=== PATIENT | male | born 1975 | race African-American/Black ===

== ENCOUNTER 2019-02-09 23:25 | Emergency (ER) | payer SELFPAY ==
[~2019-02-09] VITALS: Ht 172.7 cm; Wt 81.6 kg
[2019-02-09] MEDS ORDERED: KEPPRA500 M4 ORAL (23:27)
--- NOTE | 2019-02-09 23:30 | NUR ---
ED Nurse Note: pt ander ra 34 for C/O CP 02/16. pt verbalizes that the pain is a sharp pain. it started about hours ago. pt stated he had a cup of wine prior to th pain. bp 143/55 hr 108. pt is ambulatory. alert x3, appears to be lethargic.
[2019-02-09 23:31] VITALS: BP 140/82
--- NOTE | 2019-02-09 23:31 | NUR ---
ED Nurse Note: per renewable energy engineer, ASA 325mg and 3 spray of nitro was given. not effective.
--- NOTE | 2019-02-10 00:01 | NUR ---
ED Nurse Note: blood draws sent to lab
[2019-02-10 00:15] LABS: BASOPHILS % (AUTO) 0.8 % (0.0-2.0); EOSINOPHILS % (AUTO) 1.3 % (0.0-3.0); HEMATOCRIT 38.9 % (42.0-52.0); HEMOGLOBIN 13.1 G/DL (14.2-18.0); LYMPHOCYTES % (AUTO) 12.6 % (20.0-45.0); MEAN CORPUSCULAR VOLUME 97 FL (80-99); MONOCYTES % (AUTO) 4.6 % (1.0-10.0); NEUTROPHILS % (AUTO) 80.7 % (45.0-75.0); PLATELET COUNT 372 K/UL (150-450); RED BLOOD COUNT 3.99 M/UL (4.70-6.10); RED CELL DISTRIBUTION WIDTH 12.8 % (11.6-14.8); WHITE BLOOD COUNT 11.8 K/UL (4.8-10.8)
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
[2019-02-10 00:24] LABS: ANION GAP 14 mmol/L (5-15); BLOOD UREA NITROGEN 9 mg/dL (7-18); CALCIUM 8.9 MG/DL (8.5-10.1); CARBON DIOXIDE 24 MMOL/L (21-32); CHLORIDE 104 MMOL/L (98-107); POTASSIUM 3.4 MMOL/L (3.5-5.1); SODIUM 142 MMOL/L (136-145)
[2019-02-10 00:29] LABS: ALANINE AMINOTRANSFERASE 28 U/L (12-78); ALBUMIN 3.2 G/DL (3.4-5.0); ALBUMIN/GLOBULIN RATIO 0.8 (1.0-2.7); ALKALINE PHOSPHATASE 109 U/L (46-116); ASPARTATE AMINO TRANSFERASE 34 U/L (15-37); BILIRUBIN,TOTAL 0.4 MG/DL (0.2-1.0)
[2019-02-10 00:51] VITALS: BP 125/84
--- NOTE | 2019-02-10 00:51 | NUR ---
ER DISCHARGE NOTE: Patient is cleared to be discharged per ERMD, pt is aox4, on room air, with stable vital signs. pt was given dc instructions, pt was able to verbalize understanding, pt id band and iv site removed without complications. pt is able to ambulate with steady gait. pt took all belongings.
--- NOTE | 2019-02-11 15:12 | Cardiology Report ---
APPROVED REPORT EKG Measurement Heart [id number] Normal sinus rhythm Normal ECG
== END 2019-02-10 00:51 | disposition home or self-care (01) ==
LOC: EDBD 23:25 → EMR 23:35
DX: R07.9 Chest pain, unspecified (principal); I10 Essential (primary) hypertension; E11.9 Type 2 diabetes mellitus without complications; F19.10 Other psychoactive substance abuse, uncomplicated
CPT/HCPCS: 36415; 80053; 84484; 85025; 93005; 99283; G0480; 80329

== ENCOUNTER → 2019-04-07 | Emergency (ER) | payer MEDICAID ==
[~2019-04-07] VITALS: Ht 180.3 cm; Wt 90.7 kg
[~2019-04-07] MED LIST: Acetaminophen 500mg (ES) tab ORAL ONE; KEPPRA500 M4 ORAL; Ketorolac 30mg Inj IV ONE; NAPROXEN250 MG ORAL
[2019-04-07 22:48] VITALS: BP 138/78
--- NOTE | 2019-04-07 23:24 | Emergency Room Report ---
History of Present Illness General Chief Complaint: Chest Pain Source: Patient Present Illness HPI 43-year-old male history of psychiatric disorder presents with chest pain that is worsened when you push on his chest, and the middle, sharp in nature alleviated by not pushing on his chest severity is been mild, intermittent, no nausea no vomiting no diaphoresis no dyspnea on exertion no shortness of breath , patient presents for evaluation via EMS, he received no aspirin or nitro. Allergies: Coded Allergies: No Known Allergies (Unverified , 02/09/19) Patient History Past Medical History: see triage record Reviewed Nursing Documentation: PMH: Agreed; PSxH: Agreed Nursing Documentation-PM Past Medical History: No History, Except For Hx Diabetes: Yes Hx Seizures: Yes Review of Systems All Other Systems: negative except mentioned in HPI Physical Exam Vital Signs Date Time Temp Pulse Resp B/P (MAP) Pulse Ox O2 Delivery O2 Flow Rate FiO2 04/07/19 22:48 98.2 95 16 138/78 (98) 97 Room Air Sp02 EP Interpretation: reviewed, normal General Appearance: well appearing, no apparent distress, alert Head: normocephalic, atraumatic Eyes: bilateral eye PERRL, bilateral eye EOMI ENT: uvula midline, moist mucus membranes Neck: supple, thyroid normal, supple/symm/no masses Respiratory: lungs clear, no respiratory distress, no retraction, no accessory muscle use Cardiovascular #1: normal peripheral pulses, regular rate, rhythm, no edema, no gallop, no murmur, other - Tenderness to palpation mid chest Gastrointestinal: non tender, soft, no guarding, no rebound Musculoskeletal: normal inspection Neurologic: alert, oriented x3 Psychiatric: mood/affect normal Skin: no rash, warm/dry Medical Decision Making Diagnostic Impression: Primary Impression: Chest pain Qualified Codes: R07.89 - Other chest pain ER Course 43-year-old male presents with atypical chest pain, reproducible with palpation , patient was seen multiple times sleeping very comfortably. differential diagnosis includes ACS, drug abuse, costochondritis. EKG no acute abnormalities, chest x-ray no acute abnormalities Patient improved with Toradol administration Disposition home with return precautions EKG Diagnostic Results EKG Time: 22:51 EP Interpretation: NSR, rate 96, QTc 44, no acute ST elevations, normal axis Chest X-Ray Diagnostic Results Chest X-Ray Diagnostic Results : Chest X-Ray Ordered: Yes # of Views/Limited/Complete: 1 View Indication: Chest Pain EP Interpretation: Yes Interpretation: no consolidation, no effusion, no pneumothorax, no acute cardiopulmonary disease Impression: No acute disease Electronically Signed by: Phillip Sabillon MD Last Vital Signs Date Time Temp Pulse Resp B/P (MAP) Pulse Ox O2 Delivery O2 Flow Rate FiO2 04/07/19 22:48 98.2 95 16 138/78 97 Room Air Disposition: HOME, SELF-CARE Condition: Stable Scripts Naproxen* (NAPROSYN*) 250 Mg Tablet 250 MG ORAL BID PRN for For Pain, #20 TAB 0 Refills Prov: Phillip Sabillon MD 04/07/19 Referrals: [facility] Jacky Hoffman [facility] Patient Instructions: Nonspecific Chest Pain Additional Instructions: The patient was provided with discharge instructions, notified to follow-up with a primary care doctor and or specialist in the next 24-48 hours, and to return to the ED if they have worsening of their symptoms. Please note that this report is being documented using [employer] technology. This can lead to erroneous entry secondary to incorrect interpretation by the dictating instrument. Phillip Sabillon MD Apr 07, 2019 23:24
--- NOTE | 2019-04-08 11:16 | Diagnostic Imaging Report ---
Indication: Chest pain Comparison: None A single view chest radiograph was obtained. Findings: Cardiomediastinal appearance is within normal limits for age. The lungs are clear. Pulmonary vascularity is appropriate. The diaphragmatic contour is smooth and costophrenic angles are sharp. No pleural effusions are identified. The bones are unremarkable. Impression: No acute findings
--- NOTE | 2019-04-09 15:20 | Cardiology Report ---
APPROVED REPORT EKG Measurement Heart [id number] Normal sinus rhythm Normal ECG
== END | disposition home or self-care (01) ==
LOC: EDBD 22:44 → EDUNIT# 22:44 → EMR 22:57
DX: R07.89 Other chest pain (principal); E11.9 Type 2 diabetes mellitus without complications
CPT/HCPCS: 71045; 93005; J1885; Z7502; 99283

== ENCOUNTER 2019-05-25 03:16 | Emergency (ER) | payer SELFPAY ==
[~2019-05-25] VITALS: Ht 185.4 cm; Wt 86.2 kg
[~2019-05-25 03:16] MED LIST changes: -Acetaminophen 500mg (ES) tab ORAL ONE; -Ketorolac 30mg Inj IV ONE
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
[2019-05-25 04:00] VITALS: BP 144/81
[2019-05-25 04:45] VITALS: BP 144/81
== END 2019-05-25 04:45 | disposition home or self-care (01) ==
LOC: EDBD 03:16 → EMR 03:51
DX: R07.9 Chest pain, unspecified (principal); Z59.0 Homelessness; E11.9 Type 2 diabetes mellitus without complications; G40.909 Epilepsy, unspecified, not intractable, without status epilepticus
CPT/HCPCS: 84484; 93005; 99283

== ENCOUNTER 2019-09-10 04:26 | Emergency (ER) | payer SELFPAY ==
[~2019-09-10] VITALS: Ht 188 cm; Wt 108.9 kg
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
[2019-09-10 04:38] VITALS: BP 134/72
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
[2019-09-10 05:20] VITALS: BP 134/72
--- NOTE | 2019-09-10 05:20 | NUR ---
ER DISCHARGE NOTE: Patient is cleared to be discharged per ERMD, pt is aox4, on room air, with stable vital signs. pt was given dc and prescription instructions, pt was able to verbalize understanding, pt id band removed. pt is able to ambulate with steady gait. pt took all belongings.
== END 2019-09-10 05:20 | disposition home or self-care (01) ==
LOC: EDUNIT# 04:26 → EDBD 04:26 → EMR 04:39
DX: R07.9 Chest pain, unspecified (principal); Z59.0 Homelessness; E11.9 Type 2 diabetes mellitus without complications; G40.909 Epilepsy, unspecified, not intractable, without status epilepticus
CPT/HCPCS: 99283